=== PATIENT | female | born 2005 | race Caucasian/White ===

== ENCOUNTER 2024-06-19 05:37 | Emergency (ER) | payer SELFPAY ==
--- NOTE | 2024-06-19 | ECG_ITS ---
Test Reason : SEIZURE Blood Pressure : / mmHG Vent. Rate : 064 BPM Atrial Rate : 064 BPM P-R Int : 162 ms QRS Dur : 078 ms QT Int : 400 ms P-R-T Axes : 061 082 025 degrees QTc Int : 412 ms Normal sinus rhythm Normal ECG No previous ECGs available Referred By: Generic ED Physician Electronically Signed By:Travon Guardado
[2024-06-19 05:42] VITALS: BP 108/67; BP 136/74; PULSE 75; PULSE 86; RESP 14; TEMP 36.9; O2SAT 98; BMI 26.7
[2024-06-19 05:58] LABS: MANUAL DIFF FLAG NO
[2024-06-19 05:59] LABS: Basophils Percent Auto 0.2 % (0-2); Eosinophils Percent Auto 0.4 % (0-4); Hematocrit 38.9 % (37.0-47.0); Hemoglobin 12.9 g/dl (12.0-16.0); Imm Gran Abs Auto 0.01 X10*3/uL (0.00-0.03); Imm Gran Pct Auto 0.2 % (0.0-0.4); Lymphocytes Absolute Auto 1.6 X10*3/uL (1.2-4.9); Lymphocytes Percent Auto 31.4 % (20-40); Mean Corpuscular HGB Conc 33.2 g/dl (31.0-35.0); Mean Corpuscular Hemoglobin 28.9 pg (27.0-33.0); Monocytes Absolute Auto 0.6 X10*3/uL (0.1-1.2); Monocytes Percent Auto 11.5 % (2-11); Neutrophils Absolute Auto 2.9 x10*3/uL (2.0-8.3); Neutrophils Percent Auto 56.3 % (45-73); Platelet Count 179 X10*3/uL (160-400); Red Blood Count 4.47 X10*6/uL (4.20-5.50); Red Cell Distribution Width 12.3 % (11.0-16.0); White Blood Count 5.2 X10*3/uL (4.8-10.8)
--- NOTE | 2024-06-19 06:03 | MHC.EDTECH ---
Patient BIBA,changed into hospital attire vitals taken and placed on the front desk monitor,EKG taken per order and signed by provider. seizure pads placed on both side rails,family at bedside call so in reach
[2024-06-19 06:07] VITALS: PULSE 76; RESP 14; O2SAT 100
[2024-06-19 06:23] LABS: Alanine Aminotransferase 19 U/L (0-31); Albumin Level 4.1 g/dL (3.5-5.0); Alkaline Phosphatase 60 U/L (39-117); Anion Gap 12 (12-20); Aspartate Amino Transferase 22 U/L (5-31); Bilirubin Direct 0.1 mg/dL (0.0-0.5); Bilirubin Total 0.3 mg/dL (0.0-1.0); Blood Urea Nitrogen 8 mg/dL (9-16); Calcium 9.2 mg/dL (8.4-10.2); Carbon Dioxide 23 mmol/L (22-29); Chloride 107 mmol/L (96-108); Creatinine Clr Calc Pharmacy 112.5; Estimated Glomerular Filt Rate > 60; Glucose Random 97 mg/dL (60-115); Lipase 34 U/L (8-78); Potassium 3.4 mmol/L (3.3-5.1); Sodium 139 mmol/L (135-145); Total Protein 6.8 g/dL (6.5-8.0)
--- NOTE | 2024-06-19 06:48 | ED.SEIZURE ---
HPI - Seizure General Chief Complaint: Seizure Stated Complaint: seizure Time Seen by Provider: 06/19/24 06:32 Source: patient and EMS Mode of arrival: EMS Limitations: no limitations History of Present Illness ED Provider: Gasotn Bahena PA-C HPI Narrative: 19 yo female with history of seizure disorder diagnosed 4 years ago, no longer on medication due to insurance issues who presents to the ER for evaluation after she had a seizure at work. She reports before having a seizure she feels her whole body get warm and gets a numb sensation in her body. She states when this happens she usually removes herself from whatever she is doing, goes and sits down, stares at a wall and puts water on her face. She can usually get the feeling to pass and prevent a seizure. This morning at 5am she did these measures for about 20 minutes and then reportedly had a 30 sec tonic clonix seizure that was witnessed by her coworkers. She was confused and slow to respond afterward. No injury or incontinence. She states she has been stressed lately and not sleeping well. She is off of her seizure medication for the last 7 months. She last saw her neurologist 1 year ago. She does not have insurance at this time. complaint: seizure Onset (ago): hour(s) Description of Episode: loss of consciousness and tonic-clonic movement Witnessed: Yes - by Bystander Trauma: No Seizure History: Yes Place: Work Possible Precipitating Event: lack of sleep and stress Treatments prior to arrival: none Related Data Allergies Allergy/AdvReac Type Severity Reaction Status Date / Time No Known Allergies Allergy Verified 06/19/24 05:50 Review of Systems Review of Systems: Yes all other systems are reviewed and are negative [facility] Social History Social History Smoked in Last 30 Days: No Use of substances other than those prescribed or required for medical reasons: No Advance Directives: No Advance Directives Information Provided: No Do you have a plan to hurt others: No Plan Patient : No Physical Exam Vital Signs: Vital Signs: Last Vital Signs Temp 97.8 F 06/19/24 07:43 Pulse 70 06/19/24 07:43 Resp 16 06/19/24 07:43 BP 106/71 06/19/24 07:43 Pulse Ox 98 06/19/24 07:43 O2 Del Method Room Air 06/19/24 07:43 BMI result Body Mass Index 26.7 Appearance: Alert. Oriented X3. No acute distress. Head: normocephalic, atraumatic. Eyes: Pupils equal, round and reactive to light. No nystagmus ENT: Pharynx normal. No tonsillar swelling or exudate. Normal tongue. Neck: Normal inspection. Neck supple. CVS: Normal heart rate and rhythm. Pulses normal. Respiratory: No respiratory distress. Breath sounds normal. Abdomen: Soft and nontender. +BS x4 Skin: Skin warm and dry. Normal skin color. Normal skin turgor. No rashes. Extremities: No lower extremity edema. No joint swelling. Neuro/psych: Oriented X 3. No motor deficit. No sensory deficit. CN II-XII intact. Normal speech and cognition. Steady gait Medications Administered Discontinued Medications Generic Name Dose Route Start Last Admin Trade Name Freq PRN Reason Stop Dose Admin Ibuprofen 600 mg 06/19/24 07:27 06/19/24 07:34 Ibuprofen 600 Mg Tablet PO 06/19/24 07:28 600 mg ONCE ONE Administration Medical Decision Making Medical Decision Making [facility] Narrative: 19 yo female with history of reported seizures no longer on seizure meds or following up with Neurology due to insurance issues who is presenting for evaluation after a witnessed seizure at work. reported post-ictal state. arrives to the ER AAOX 3, nonfocal, no signs of trauma. she reports she used to be on a seizure medicaion that started with a d and was very long. she cannot recall the name. 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 she gets a prodrome before her seizures and she is often able to stop them from becoming full blown GTCS. this is most c/w nonepileptic seizures. she has declined paying for [employer] as it costs too much money. offered to see financial services here but she is not interested. her lab workup today was unremarkable. no signs of infection. no electrolyte abnormality. she is nonfocal neurologically. she is back to baseline. she admits to stress and lack of sleep lately which likely contributed to her episode today. at this time stable for d/c home with outpatient follow up with Neuro, PCP. Differential Diagnosis Differential Diagnoses: The differential diagnosis associated with the presentation includes psychogenic nonepileptic seizures, epileptic seizures, stress Admission/Observation Consideration of admission/observation: Escalation of care including admission/observation considered Lab Data [facility] Lab Attestation statement: I reviewed the patient's lab results. 06/19/24 05:53 06/19/24 05:53 Labs: Lab Results 06/19/24 06/19/24 Range/Units 05:53 06:55 WBC 5.2 (4.8-10.8) X10*3/uL RBC 4.47 (4.20-5.50) X10*6/uL Hgb 12.9 (12.0-16.0) g/dl Hct 38.9 (37.0-47.0) % MCV 87.0 (80.0-98.0) fL MCH 28.9 (27.0-33.0) pg MCHC 33.2 (31.0-35.0) g/dl RDW 12.3 (11.0-16.0) % Plt Count 179 (160-400) X10*3/uL MPV 11.0 (9.4-12.3) fL Immature Gran % (Auto) 0.2 (0.0-0.4) % Neut % (Auto) 56.3 (45-73) % Lymph % (Auto) 31.4 (20-40) % [place] % (Auto) 11.5 H (2-11) % Eos % (Auto) 0.4 (0-4) % Baso % (Auto) 0.2 (0-2) % Lymph # (Auto) 1.6 (1.2-4.9) X10*3/uL [place] # (Auto) 0.6 (0.1-1.2) X10*3/uL Eos # (Auto) 0.0 (0.0-0.4) X10*3/uL Baso # (Auto) 0.0 (0.0-0.2) X10*3/uL Abs Immat Gran (auto) 0.01 (0.00-0.03) X10*3/uL Absolute Neuts (auto) 2.9 (2.0-8.3) x10*3/uL Absolute Nucleated RBC 0.000 (0.0-0.012) X10*3/uL Nucleated RBC % (auto) 0.0 (0.0-0.2) /100WBC Sodium 139 (135-145) mmol/L Potassium 3.4 (3.3-5.1) mmol/L Chloride 107 (96-108) mmol/L Carbon Dioxide 23 (22-29) mmol/L Anion Gap 12 (12-20) BUN 8 L (9-16) mg/dL Creatinine 0.74 (0.5-1.4) mg/dL Estim Creat Clear Calc 112.5 Estimated GFR > 60 Random Glucose 97 (60-115) mg/dL Calcium 9.2 (8.4-10.2) mg/dL Total Bilirubin 0.3 (0.0-1.0) mg/dL Direct Bilirubin 0.1 (0.0-0.5) mg/dL AST 22 (5-31) U/L ALT 19 (0-31) U/L Alkaline Phosphatase 60 (39-117) U/L Total Protein 6.8 (6.5-8.0) g/dL Albumin 4.1 (3.5-5.0) g/dL Lipase 34 (8-78) U/L Urine Color Yellow Urine Appearance Clear Urine pH 7.0 (5.0-9.0) Ur Specific [place] 1.010 (1.005-1.025) Urine Protein Negative (Neg-Trace) mg/dL Urine Glucose (UA) Negative (Negative) mg/dL Urine Ketones Negative (Negative) mg/dL Urine Blood Small (1+) H (Negative) Urine Nitrite Negative (Negative) Ur Leukocyte Esterase Trace H (Negative) Urine RBC 3-5 H (0-2) /HPF Urine WBC 0-5 (0-5) /HPF Ur Squamous Epith Cells 6-10 (0-2) /HPF Urine Bacteria 4+ (None Seen) Hyaline Casts 0-2 (0-2) /LPF Urine Test NEGATIVE (NEGATIVE) Independent Interpretation I performed an independent interpretation of an: EKG Interpretation: ekg w/ normal sinus rhythm, hr 64 bpm, normal pr interval, normal qtc, no st segment elevations or depression Independent Historian Clinical information obtained from an independent historian. History obtained from or confirmed by: Spouse and EMS Tests considered The following testing was considered but not selected: CT head considered but no trauma, not 1st seizure Prescription Management I considered prescription management with: Other (anti-epileptic drug) Chronic Conditions Patient?s care impacted by: Other (seizures) Social Determinants Patient?s care significantly limited by Social Determinants of Health including: Other Social Determinant of Health (no health insurance) Critical Care Time Critical Care Time Critical Care Time: No Discharge Plan Discharge Clinical Impression: Generalized seizure Patient Disposition: Home, Self-Care Instructions: Recurrent Seizures in Adults (ED) Additional Instructions: your lab workup today was unremarkable it is important that you follow up with your neurologist rest and drink plenty of fluids make sure to get plenty of sleep If you develop new or worsening symptoms call 911 or come back to the ER for further evaluation. Stand Alone Forms: Work/School Release Interventions: ED Discharge Assessment Last Done: 06/19/24 07:43 Discharge Date/Time: 06/19/24 07:44 Print Language: Mongolian
[2024-06-19 07:01] LABS: Appearance Urine Clear; Color Urine Yellow; Glucose Urine UA Negative (Negative); Leukocyte Esterase Urine Trace (Negative); Nitrite Urine Negative (Negative); UMIC TRIGGER UACC YES; Urine Blood Small (1+) (Negative); Urine Ketones Negative (Negative); Urine Protein Negative (Neg-Trace)
[2024-06-19 07:03] LABS: UPreg QC Valid YES; Urine Pregnancy NEGATIVE (NEGATIVE)
[2024-06-19 07:13] LABS: Bacteria Urine 4+ (None Seen); Hyaline Casts Urine 0-2 /LPF (0-2); WBC Urine 0-5 /HPF (0-5)
[2024-06-19] MEDS: Ibuprofen 600 MG TABLET PO (07:34)
[2024-06-19 07:35] VITALS: BP 106/71; PULSE 70; RESP 16; TEMP 36.6; O2SAT 98
[2024-06-19 07:43] VITALS: BP 106/71; PULSE 70; RESP 16; TEMP 36.6; O2SAT 98
--- NOTE | 2024-06-19 07:43 | PC.NURSE ---
pt c/o 05/28 [facility] - requesting medication. pt medicated prior to d/c.
== END 2024-06-19 07:44 | disposition home or self-care (01) ==
PROVIDERS: Emergency Provider Emergency Medicine
DX: G40.409 Other generalized epilepsy and epileptic syndromes, not intractable, without status epilepticus (principal)
CPT/HCPCS: 36415; 80048; 80076; 81001; 81003; 81025; 83690; 85025; 93005; 99283; 99284

== ENCOUNTER → 2024-06-19 05:50 | Outpatient (BNV) | payer SELFPAY | PROVIDERS: Emergency Provider Emergency Medicine; Visit Provider Internal Medicine Cardiovascular Disease | DX: R56.9 Unspecified convulsions (principal) | CPT/HCPCS: 93010 ==